=== PATIENT | male | born 1990 | race Caucasian/White ===

== ENCOUNTER 2017-08-20 20:25 | Emergency (ER) | payer SELFPAY ==
[2017-08-20] MEDS ORDERED: KETOROLAC TROMETHAMINE 60 MG/2 ML VIAL IM ONE (20:39)
[2017-08-20 21:47] VITALS: BP 138/68
--- NOTE | 2017-08-20 22:58 | Diagnostic Imaging Report ---
FRANCISCO MENA [facility] [address] [facility] [address] [address] Report Submission Date: Aug 20, 2017 9:01:27 PM CDT Patient Study Name: JOAN LORENZO Date: Aug 20, 2017 8:46:18 PM CDT Modality Type: CR Gender: M Description: LOWER EXTREMITY : 89 Institution: [facility] Physician: FRANCISCO MENA Right foot, 3 views History: INJURY TO FOOT FROM FALL, PAIN Findings: The osseous structures are intact without acute fracture. The joint space and alignment are normal. There is no soft tissue swelling. Impression: 1. No acute osseous abnormality. Electronically signed on Aug 20, 2017 9:01:27 PM CDT by: Terell AUGUSTIN
--- NOTE | 2017-08-21 08:30 | ED Physician Documentation ---
Foot Injury - HISTORIAN Historian: patient - HPI Stated Complaint: Right foot pain Chief Complaint: Foot Injury Additional Information: pt. fell off 1 story roof last week onto right heel - pain and swelling since Onset: days ago (7) Where: work Severity: moderate Context: fall Associated Symptoms:: swelling Modifying Factors:: none Further Comments: no - ROS CONST: no problems CVS/RESP: none NEURO: denies: headache, head injury, dizziness GI/: denies: problems urinating, nausea, vomiting MS/SKIN/LYMPH: none - PAST HX Past History: none Immunizations: referred to PCP Allergies/Adverse Reactions: Allergies Allergy/AdvReac Type Severity Reaction Status Date / Time No Known Allergies Allergy Verified 08/22/15 17:24 Home Medications: Ambulatory Orders Medication Instructions Recorded Cephalexin [Keflex] 500 mg PO QID #40 capsule 08/22/15 - SOCIAL HX Smoking History: cigarettes Alcohol Use: occasionally Drug Use: none - FAMILY HX Family History: no significant history - VITAL SIGNS Vital Signs: Vital Signs Temp Pulse Resp BP Pulse Ox 72 18 138/68 98 08/20/17 21:45 08/20/17 21:45 08/20/17 21:45 08/20/17 21:45 - REVIEWED ASSESSMENTS Nursing Assessment Reviewed: Yes Vitals Reviewed: Yes Progress - Results/Orders Results/Orders: right foot and ankle x-ray ordered - Progress Progress: pt. stable entire time in er Critical Care Note - Critical Care Note Total Time (mins): 0 ED Results Lab/Radiology - Lab Results Lab Results: none ordered - Radiology Radiology Impressions: x-ray right foot and ankle neg for juliann abn, pos soft tissue swelling - Orders Orders: ED Orders Category Date Time Status ANKLE 3 VIEWS OR MORE [RAD] Routine Exams 08/20/17 Taken ANKLE 3 VIEWS OR MORE [RAD] Stat Exams 08/20/17 Taken FOOT 3 VIEWS OR MORE [RAD] Stat Exams 08/20/17 Completed Ketorolac Tromethamine [Toradol] Med 08/20/17 20:39 Discontinued 60 mg IM NOW ONE Foot Injury Physical Exam - Physical Exam General Appearance: alert, moderate distress Foot: right foot: soft tissue tenderness (right calcaneal area), swelling ( right calcaneal area), other (no bruising, no juliann deformity, no ligamentous laxity) Discharge Clincal Impression: heel sprain Referrals: Juan M Montanez MD [STAFF PHYSICIAN] - 2 Days Comments: discharged in stable condition with low profile walker boot and meloxicam script 7.5 mg p.o. bid x 1 week Condition: Stable Disposition: HOME, SELF-CARE Decision to Admit: NO Decision Time: 21:40
== END 2017-08-20 21:45 | disposition home or self-care (01) ==
LOC: ED 20:25
DX: S93.691A Other sprain of right foot, initial encounter (principal); X58.XXXA Exposure to other specified factors, initial encounter; Y93.9 Activity, unspecified; Y99.9 Unspecified external cause status
CPT/HCPCS: 73610; 73630; J1885; 96372; 99283